=== PATIENT | female | born 1960 | race Caucasian/White ===

== ENCOUNTER → 2016-10-29 | Outpatient (CLI) | payer MEDICAID ==
[~2016-10-29] MED LIST: ALBU0.63 NEB; ALBU18HF IH; AMLO10TA2 PO; AMLO2.5T2 PO; BUTA-5 PO; BUTA1CAP57 PO; CALC-141 PO; CIPR500T3 PO; CLON1TAB PO; DULO60CA7 PO; ESOM40CA PO; FLUT1DIS3 INH; FURO-92 PO; FURO80TA77 PO; GABA100C8 PO; HYDR50TA13 PO; LACT1CAP35 PO; LAMO200T PO; LEVO25TA4 PO; LISI-167 PO; MAGN400T7 PO; METF500T4 PO; METO25TA35 PO; METO25TA4 PO; MULT-208 PO; NORT10CA PO; ONDA8TAB12 PO; OXYC1TAB7 PO; POTA10TA5 PO; PREG25CA PO; PROM25TA10 PO; SENN1TAB67 PO; SPIR25TA3 PO; SUCR1TAB PO; SUVO10TA PEG; TIOT18CA INH; TRAM50TA2 PO; ZIPR80CA2 PO; ZOLP-413 PO; [UNRECOGNIZED DRUG - OTHER] PO; latuda PO
== END | disposition home or self-care (01) ==
LOC: CFH 15:38
PROVIDERS: ATTEND Nurse Practitioner
DX: Z12.2 Encounter for screening for malignant neoplasm of respiratory organs (principal); J98.11 Atelectasis; J44.9 Chronic obstructive pulmonary disease, unspecified; J84.10 Pulmonary fibrosis, unspecified; R91.1 Solitary pulmonary nodule; F17.210 Nicotine dependence, cigarettes, uncomplicated
CPT/HCPCS: G0297

== ENCOUNTER → 2017-01-25 | Outpatient (CLI) | payer MEDICAID ==
[~2017-01-25] MED LIST changes: +GABA-826 PO; -GABA100C8 PO
== END | disposition home or self-care (01) ==
LOC: CFH 13:23
PROVIDERS: ATTEND Internal Medicine Critical Care Medicine
DX: J98.4 Other disorders of lung (principal); M47.894 Other spondylosis, thoracic region
CPT/HCPCS: 71250

== ENCOUNTER 2018-01-15 11:28 | Emergency (ER) | payer MEDICAID ==
[~2018-01-15] VITALS: Ht 172.7 cm; Wt 96.2 kg
[~2018-01-15 11:28] MED LIST changes: -LAMO200T PO; +LAMO200T2 PO
[2018-01-15 11:30] VITALS: BP 147/87
[2018-01-15] MEDS ORDERED: ALBUTEROL/IPRATROPIUM 2.5MG/0.5MG, 3 ML ONE (11:52)
[2018-01-15] MEDS ORDERED: ALBUTEROL/IPRATROPIUM 2.5MG/0.5MG, 3 ML NPPB ONE (12:00)
== END 2018-01-15 12:46 | disposition home or self-care (01) ==
LOC: ED 12:00
DX: J44.1 Chronic obstructive pulmonary disease with (acute) exacerbation (principal); B34.9 Viral infection, unspecified; K21.9 Gastro-esophageal reflux disease without esophagitis; E11.9 Type 2 diabetes mellitus without complications; M19.90 Unspecified osteoarthritis, unspecified site; Z90.49 Acquired absence of other specified parts of digestive tract; Z90.710 Acquired absence of both cervix and uterus; F17.210 Nicotine dependence, cigarettes, uncomplicated
CPT/HCPCS: 71046; 94640; 99284; J7620

== ENCOUNTER 2018-03-16 16:51 | Emergency (ER) | payer MEDICAID ==
[~2018-03-16] VITALS: Ht 172.7 cm; Wt 92.5 kg
[~2018-03-16 16:51] MED LIST changes: -METF500T4 PO; +METF500T5 PO; -SPIR25TA3 PO; +SPIR25TA5 PO
[2018-03-16 17:56] LABS: BASOPHILS # (AUTO) 0.01 x10^3/uL (0-0.1); BASOPHILS % (AUTO) 0 % (0-1); EOSINOPHILS # (AUTO) 0.25 x10^3/uL (0-0.4); EOSINOPHILS % (AUTO) 2 % (1-7); LYMPHOCYTES # (AUTO) 2.52 x10^3/uL (1-3.4); LYMPHOCYTES % (AUTO) 21 % (22-44); MD NO; MEAN CORPUSCULAR HEMOGLOBIN 30.8 pg (27.0-34.8); MEAN CORPUSCULAR VOLUME 93.3 fL (80-100); MEAN PLATELET VOLUME 10.5 fL (7.4-10.4); MONOCYTES # (AUTO) 0.41 x10^3/uL (0.2-0.8); MONOCYTES % (AUTO) 3 % (2-9); NEUTROPHILS # (AUTO) 9.13 x10^3/uL (1.8-6.8); NEUTROPHILS % (AUTO) 74 % (42-75); PLATELET COUNT 230 x10^3/uL (130-400); RED BLOOD COUNT 5.35 x10^6/uL (3.82-5.3); RED CELL DISTRIBUTION WIDTH 14.1 % (9.6-15.2)
[2018-03-16 18:06] LABS: ALANINE AMINOTRANSFERASE 23 U/L (12-78); ALBUMIN 3.8 g/dL (3.4-5.0); ANION GAP 8 mmol/L (5-15); CALCIUM 9.2 mg/dL (8.5-10.1); CHLORIDE 110 mmol/L (98-107)
[2018-03-16 18:08] LABS: ALKALINE PHOSPHATASE 137 U/L (45-117); BILIRUBIN,TOTAL 0.6 mg/dL (0.2-1.0); TOTAL PROTEIN 8.1 g/dL (6.4-8.2)
[2018-03-16] MEDS ORDERED: KETOROLAC 30 MG/1 ML ONE (18:28)
[2018-03-16] MEDS ORDERED: KETOROLAC 30 MG/1 ML IM ONE (18:30)
[2018-03-16 18:51] VITALS: BP 117/67
== END 2018-03-16 19:12 | disposition home or self-care (01) ==
LOC: ED 19:03
DX: E10.42 Type 1 diabetes mellitus with diabetic polyneuropathy (principal); I10 Essential (primary) hypertension; G89.29 Other chronic pain; K21.9 Gastro-esophageal reflux disease without esophagitis; M79.7 Fibromyalgia; M19.90 Unspecified osteoarthritis, unspecified site; M81.0 Age-related osteoporosis without current pathological fracture; J44.9 Chronic obstructive pulmonary disease, unspecified; Z90.49 Acquired absence of other specified parts of digestive tract; Z90.710 Acquired absence of both cervix and uterus; Z91.14 Patient's other noncompliance with medication regimen; Z72.89 Other problems related to lifestyle; Z59.0 Homelessness
CPT/HCPCS: 36415; 80053; 85025; 96372; 99284; J1885

== ENCOUNTER 2018-09-17 18:01 | Emergency (ER) | payer MEDICAID ==
[~2018-09-17] VITALS: Ht 172.7 cm; Wt 81.1 kg
[~2018-09-17 18:01] MED LIST changes: -AMLO10TA2 PO; +AMLO10TA8 PO; +METF500T17 PO; -METF500T5 PO
[2018-09-17 18:32] VITALS: BP 123/81
--- NOTE | 2018-09-17 19:52 | NUR ---
Pt ambulated to room without assistance, with 2 service dogs.
--- NOTE | 2018-09-17 19:55 | NUR ---
Pt advised that we will need a urine sample, in a cup, when she is finished changing into gown.
[2018-09-17] MEDS ORDERED: SODIUM CHLORIDE FLUSH 10ML SYR IVF ONE (20:00)
--- NOTE | 2018-09-17 20:08 | NUR ---
Pt has changed into gown, pt ambulating around room, refusing to sit in bed, squatting down at time and urinating on the floor. Pt's 2 "service dogs" are drinking urine from the floor. Pt refusing to speak to EDT who is at bedside for EKG and refusing to allow EKG to be done.
--- NOTE | 2018-09-17 20:10 | NUR ---
Pt reports that she is unable to provide urine sample now as she has already urinated all over the floor.
--- NOTE | 2018-09-17 20:30 | NUR ---
Lab at bedside for blood draw. Pt with dogs on her lap, holding dogs by collar, as labor relations director attempts to place tourniquet, dogs lunged at labor relations director and bit at her. Pt stated "they won't bite" and hit the dog in the head and held collar more tightly. control valve technician able to obtain sample.
[2018-09-17 20:47] LABS: BASOPHILS # (AUTO) 0.05 x10^3/uL (0-0.1); BASOPHILS % (AUTO) 0 % (0-1); EOSINOPHILS # (AUTO) 0.19 x10^3/uL (0-0.4); EOSINOPHILS % (AUTO) 2 % (1-7); LYMPHOCYTES # (AUTO) 3.18 x10^3/uL (1-3.4); LYMPHOCYTES % (AUTO) 27 % (22-44); MD NO; MEAN CORPUSCULAR HEMOGLOBIN 30.6 pg (27.0-34.8); MEAN CORPUSCULAR HGB CONC 33.3 g/dL (32.4-35.8); MEAN CORPUSCULAR VOLUME 91.9 fL (80-100); MEAN PLATELET VOLUME 9.5 fL (7.4-10.4); MONOCYTES # (AUTO) 0.67 x10^3/uL (0.2-0.8); MONOCYTES % (AUTO) 6 % (2-9); NEUTROPHILS # (AUTO) 7.58 x10^3/uL (1.8-6.8); NEUTROPHILS % (AUTO) 65 % (42-75); PLATELET COUNT 266 x10^3/uL (130-400); RED BLOOD COUNT 5.26 x10^6/uL (3.82-5.3); RED CELL DISTRIBUTION WIDTH 14.1 % (9.6-15.2)
--- NOTE | 2018-09-17 20:53 | NUR ---
Dr. Junior at bedside to evaluate pt.
[2018-09-17 20:57] LABS: ALBUMIN 3.9 g/dL (3.4-5.0); ANION GAP 7 mmol/L (5-15); CALCIUM 9.1 mg/dL (8.5-10.1); CHLORIDE 108 mmol/L (98-107)
[2018-09-17 21:02] LABS: ALANINE AMINOTRANSFERASE 25 U/L (12-78); ALKALINE PHOSPHATASE 150 U/L (45-117); BILIRUBIN,TOTAL 0.7 mg/dL (0.2-1.0); CREATININE 1.09 mg/dL (0.55-1.02); TOTAL PROTEIN 8.2 g/dL (6.4-8.2)
== END 2018-09-17 21:55 | disposition left against medical advice (07) ==
LOC: ED 21:49
DX: R42 Dizziness and giddiness (principal); I10 Essential (primary) hypertension; K21.9 Gastro-esophageal reflux disease without esophagitis; M19.90 Unspecified osteoarthritis, unspecified site; F17.200 Nicotine dependence, unspecified, uncomplicated; J44.9 Chronic obstructive pulmonary disease, unspecified; Z72.9 Problem related to lifestyle, unspecified; Z75.9 Unspecified problem related to medical facilities and other health care; Z91.14 Patient's other noncompliance with medication regimen; Z63.8 Other specified problems related to primary support group
CPT/HCPCS: 36415; 80053; 82962; 85025; 99283

== ENCOUNTER 2018-10-04 16:07 | Inpatient (IN) | payer MEDICAID ==
[~2018-10-04] VITALS: Ht 172.7 cm; Wt 83.0 kg
--- NOTE | 2018-10-04 16:29 | NUR ---
NO CODE NEURO AT THIS TIME PT IS NOT IN 3 HOUR WINDOW. PTS SYMPTOMS STARTED THIS MORNING.
[2018-10-04] MEDS ORDERED: ALBUTEROL/IPRATROPIUM 2.5MG/0.5MG, 3 ML NPPB ONE (17:00)
[2018-10-04] MEDS ORDERED: SODIUM CHLORIDE FLUSH 10ML SYR IVF ONE (17:00)
[2018-10-04 17:17] LABS: BASOPHILS # (AUTO) 0.04 x10^3/uL (0-0.1); BASOPHILS % (AUTO) 0 % (0-1); EOSINOPHILS # (AUTO) 0.18 x10^3/uL (0-0.4); EOSINOPHILS % (AUTO) 1 % (1-7); LYMPHOCYTES # (AUTO) 1.98 x10^3/uL (1-3.4); LYMPHOCYTES % (AUTO) 15 % (22-44); MD NO; MEAN CORPUSCULAR HEMOGLOBIN 30.8 pg (27.0-34.8); MEAN CORPUSCULAR VOLUME 90.5 fL (80-100); MEAN PLATELET VOLUME 8.6 fL (7.4-10.4); MONOCYTES % (AUTO) 4 % (2-9); NEUTROPHILS % (AUTO) 80 % (42-75); PLATELET COUNT 426 x10^3/uL (130-400); RED BLOOD COUNT 4.14 x10^6/uL (3.82-5.3); RED CELL DISTRIBUTION WIDTH 14.2 % (9.6-15.2)
[2018-10-04 17:29] LABS: ALANINE AMINOTRANSFERASE 21 U/L (12-78); ALBUMIN 2.8 g/dL (3.4-5.0); ANION GAP 5 mmol/L (5-15); CALCIUM 8.4 mg/dL (8.5-10.1); CHLORIDE 108 mmol/L (98-107); CREATININE 0.79 mg/dL (0.55-1.02)
[2018-10-04 17:31] LABS: ALKALINE PHOSPHATASE 174 U/L (45-117); BILIRUBIN,TOTAL 0.3 mg/dL (0.2-1.0); TOTAL PROTEIN 7.4 g/dL (6.4-8.2)
[2018-10-04] MEDS ORDERED: ALBUTEROL/IPRATROPIUM 2.5MG/0.5MG, 3 ML ONE (18:35)
--- NOTE | 2018-10-04 19:06 | NUR ---
PT HERE FOR NEURO SYMPTOMS, SON BROUGHT IN TODAY. PT SON REMAINS AT BEDSIDE. PT VERY ANXIOUS.
[2018-10-04] MEDS ORDERED: LEVOFLOXACIN/PMX 750MG/150ML 150 ML ONE (19:21)
[2018-10-04] MEDS ORDERED: CEFTRIAXONE 1,000 MG in SODIUM CHLORIDE 0.9% 50 ML IVPB ONE (19:30)
[2018-10-04] MEDS ORDERED: methylPREDNISolone SOD SUCC 125 MG/2 ML IVPush ONE (19:30)
[2018-10-04] MEDS ORDERED: LEVOFLOXACIN/PMX 750MG/150ML 150 ML IV ONE (19:30)
[2018-10-04] MEDS ORDERED: AZITHROMYCIN 500 MG in SODIUM CHLORIDE 0.9% 250 ML IV ONE (19:30)
[2018-10-04] MEDS ORDERED: methylPREDNISolone SOD SUCC 125 MG/2 ML ONE (19:39)
--- NOTE | 2018-10-04 20:07 | NUR ---
Grisel thompson in EDM - 10/04/18 at 2009 by MIGUEL ANGEL PT WAS AMBULATED AROUND THE KATE WITH 1 PERSON ASSIST. PT WAS ABLE TO COMPLETE ABOUT 60 METERS OF WALKING WITHOUT DISTRESS. HOWEVER PT DID NOT REPORT INCREASE IN VERTIGO OR FEEL NAUSEA. PT HOWEVERE IS STILL CONCERNED ABOUT GOING HOME.
--- NOTE | 2018-10-04 20:09 | NUR ---
PT MEDICATED PER EMAR.
--- NOTE | 2018-10-04 21:29 | NUR ---
REPORT TO CHARISMA
[2018-10-04] MEDS ORDERED: SODIUM CHLORIDE 0.9% 1,000 ML IV SCH (21:58)
[2018-10-04] MEDS ORDERED: ONDANSETRON 2MG/ML, 2ML IVPush PRN (22:00)
[2018-10-04] MEDS ORDERED: POLYETHYLENE GLYCOL 17 GM PACKET PO PRN (22:00)
[2018-10-04] MEDS ORDERED: hydrALAzine 20 MG/ML, 1ML IVPush PRN (22:00)
[2018-10-04] MEDS ORDERED: TEMAZEPAM 15 MG CAPSULE PO PRN (22:00)
[2018-10-05] MEDS ORDERED: NICOTINE 7 MG/24 HR PATCH.TD24 TD SCH
[2018-10-05 00:27] VITALS: BP 116/70
[2018-10-05] MEDS: ENOXAPARIN 40 MG/0.4 ML SQ SCH ×2 (00:34→22:42)
[2018-10-05 00:39] VITALS: BP 116/68
[2018-10-05 01:04] LABS: MICROSCOPIC NOT IND
[2018-10-05 01:08] LABS: CULTURE INDICATED? NO
[2018-10-05 01:15] LABS: AMPHETAMINE SCREEN, URINE Negative (Negative); BARBITURATE SCREEN, URINE Negative (Negative); BENZODIAZEPINE SCREEN, URINE Negative (Negative); CANNABINOID SCREEN, URINE Negative (Negative); COCAINE SCREEN, URINE Negative (Negative); METHADONE SCREEN, URINE Negative (Negative); OPIATE SCREEN, URINE Positive (Negative)
[2018-10-05] MEDS ORDERED: ALBUTEROL/IPRATROPIUM 2.5MG/0.5MG, 3 ML ONE (02:51)
[2018-10-05] MEDS: ALBUTEROL/IPRATROPIUM 2.5MG/0.5MG, 3 ML NPPB SCH ×4 (02:54→18:42)
[2018-10-05 05:54] LABS: ANION GAP 7 mmol/L (5-15); CALCIUM 8.3 mg/dL (8.5-10.1); CHLORIDE 110 mmol/L (98-107); CREATININE 0.92 mg/dL (0.55-1.02)
[2018-10-05 05:55] LABS: BASOPHILS # (AUTO) 0.02 x10^3/uL (0-0.1); BASOPHILS % (AUTO) 0 % (0-1); EOSINOPHILS % (AUTO) 0 % (1-7); LYMPHOCYTES # (AUTO) 0.45 x10^3/uL (1-3.4); LYMPHOCYTES % (AUTO) 5 % (22-44); MD NO; MEAN CORPUSCULAR HEMOGLOBIN 30.8 pg (27.0-34.8); MEAN CORPUSCULAR HGB CONC 33.8 g/dL (32.4-35.8); MEAN PLATELET VOLUME 8.7 fL (7.4-10.4); MONOCYTES # (AUTO) 0.08 x10^3/uL (0.2-0.8); MONOCYTES % (AUTO) 1 % (2-9); NEUTROPHILS # (AUTO) 8.35 x10^3/uL (1.8-6.8); NEUTROPHILS % (AUTO) 94 % (42-75); PLATELET COUNT 347 x10^3/uL (130-400); RED BLOOD COUNT 3.84 x10^6/uL (3.82-5.3); RED CELL DISTRIBUTION WIDTH 14.1 % (9.6-15.2)
[2018-10-05 06:04] LABS: THYROID STIMULATING HORMONE 0.533 mIU/L (0.358-3.740)
[2018-10-05 07:57] VITALS: BP 110/58
[2018-10-05 09:24] LABS: HEMOGLOBIN A1C 5.4 % (4.2-6.3)
[2018-10-05] MEDS ORDERED: ALBUTEROL SULFATE 2.5 MG/3 ML NEB PRN (14:00)
[2018-10-05 14:09] VITALS: BP 105/71
[2018-10-05] MEDS ORDERED: BUTALB/APAP/CAFFEINE 50MG/325MG/40MG PO PRN (14:30)
[2018-10-05] MEDS: DULOXETINE 30 MG CAPSULE.DR PO SCH (15:19)
[2018-10-05] MEDS: SUMATRIPTAN 50 MG TABLET PO PRN ×2 (15:32→17:50)
[2018-10-05] MEDS ORDERED: LEVOFLOXACIN/PMX 750MG/150ML 150 ML IV SCH (16:00)
[2018-10-05] MEDS: LAMOTRIGINE 100 MG TABLET PO SCH (17:22)
[2018-10-05] MEDS: PREGABALIN 25 MG CAPSULE PO SCH ×2 (17:49→22:42)
[2018-10-05] MEDS ORDERED: NICOTINE 21 MG/24 HR PATCH.TD24 TD SCH (18:00)
[2018-10-05 19:42] VITALS: BP 120/72
[2018-10-05] MEDS ORDERED: TEMPLATE NON-FORMULARY MED. (Suvorexant (Belsomra) 20 MG) PEG SCH (21:00)
[2018-10-05] MEDS ORDERED: LORazepam 0.5MG TABLET PO ONE (21:00)
[2018-10-06 02:08] VITALS: BP 112/67
[2018-10-06 05:50] LABS: ANION GAP 5 mmol/L (5-15); CALCIUM 8.3 mg/dL (8.5-10.1); CHLORIDE 113 mmol/L (98-107)
[2018-10-06 05:51] LABS: CREATININE 0.63 mg/dL (0.55-1.02)
[2018-10-06] MEDS: ALBUTEROL/IPRATROPIUM 2.5MG/0.5MG, 3 ML NPPB SCH (07:00)
[2018-10-06 08:15] VITALS: BP 112/67
[2018-10-06] MEDS: DULOXETINE 30 MG CAPSULE.DR PO SCH (08:17)
[2018-10-06] MEDS: PREGABALIN 25 MG CAPSULE PO SCH (08:18)
[2018-10-06] MEDS: LAMOTRIGINE 100 MG TABLET PO SCH (08:18)
[2018-10-06] MEDS ORDERED: TIOTROPIUM BROMIDE 1.25 MCG INH SCH (09:00)
[2018-10-06] MEDS ORDERED: LEVOTHYROXINE 25 MCG TABLET PO SCH (09:00)
[2018-10-06] MEDS ORDERED: DULOXETINE 30 MG CAPSULE.DR PO SCH (09:00)
[2018-10-06] MEDS ORDERED: LAMOTRIGINE 100 MG TABLET PO SCH (09:00)
[2018-10-06] MEDS ORDERED: SUVO10TA PEG (11:21)
[2018-10-06] MEDS ORDERED: TIOT18CA INH (11:21)
[2018-10-06] MEDS ORDERED: ALBU0.63 NEB (11:21)
[2018-10-06] MEDS ORDERED: LAMO100T5 PO (11:21)
[2018-10-06] MEDS ORDERED: DULO60CA7 PO (11:21)
[2018-10-06] MEDS ORDERED: LEVO25TA4 PO (11:21)
[2018-10-06] MEDS ORDERED: LEVO500T8 PO ×2 (11:23)
[2018-10-06 13:07] VITALS: BP 135/77
[2018-10-06] MEDS ORDERED: ALBUTEROL/IPRATROPIUM 2.5MG/0.5MG, 3 ML NPPB SCH (16:00)
[2018-10-06] MEDS ORDERED: LEVO750T6 PO (16:20)
== END 2018-10-06 13:53 | disposition home or self-care (01) | DRG 193 ==
LOC: ED 19:30 → EDIP 20:28 → 4NOR 23:03 → DCLOUNGE 10-06 13:37
PROVIDERS: ADMIT Hospitalist; ATTEND Hospitalist
DX: J15.9 Unspecified bacterial pneumonia (principal); G92 Toxic encephalopathy; J96.01 Acute respiratory failure with hypoxia; J44.0 Chronic obstructive pulmonary disease with (acute) lower respiratory infection; J44.1 Chronic obstructive pulmonary disease with (acute) exacerbation; T88.6XXA Anaphylactic reaction due to adverse effect of correct drug or medicament properly administered, initial encounter; J98.11 Atelectasis; E11.9 Type 2 diabetes mellitus without complications; F17.210 Nicotine dependence, cigarettes, uncomplicated; F31.9 Bipolar disorder, unspecified; F43.10 Post-traumatic stress disorder, unspecified; G47.33 Obstructive sleep apnea (adult) (pediatric); I10 Essential (primary) hypertension; K21.9 Gastro-esophageal reflux disease without esophagitis; K74.60 Unspecified cirrhosis of liver; M79.7 Fibromyalgia; M81.0 Age-related osteoporosis without current pathological fracture; T36.0X5A Adverse effect of penicillins, initial encounter; Z85.41 Personal history of malignant neoplasm of cervix uteri; Z85.43 Personal history of malignant neoplasm of ovary; Z86.19 Personal history of other infectious and parasitic diseases; Z90.710 Acquired absence of both cervix and uterus; Z91.19 Patient's noncompliance with other medical treatment and regimen; Z88.0 Allergy status to penicillin; Z88.5 Allergy status to narcotic agent; Z88.6 Allergy status to analgesic agent; Z88.8 Allergy status to other drugs, medicaments and biological substances
CPT/HCPCS: 36415; 84145; 99285; J7620; 70450; 71046; 80048; 80053; 80307; 81003; 82962; 83036; 83735; 84100; 84443; 85025; 87040; 93005; 94640; 96365; 96375; G0378; J1650; J1956; J2405; 92523-GN; J2930; J7030

== ENCOUNTER 2019-03-09 10:58 | Emergency (ER) | payer MEDICARE, MEDICAID ==
[~2019-03-09] VITALS: Ht 172.7 cm; Wt 91.0 kg
[2019-03-09 12:30] VITALS: BP 123/74
== END 2019-03-09 14:34 | disposition home or self-care (01) ==
LOC: ED 14:27
DX: S39.012A Strain of muscle, fascia and tendon of lower back, initial encounter (principal); S33.5XXA Sprain of ligaments of lumbar spine, initial encounter; K62.89 Other specified diseases of anus and rectum; K59.00 Constipation, unspecified; K21.9 Gastro-esophageal reflux disease without esophagitis; I10 Essential (primary) hypertension; E11.9 Type 2 diabetes mellitus without complications; J44.9 Chronic obstructive pulmonary disease, unspecified; M19.90 Unspecified osteoarthritis, unspecified site; N19 Unspecified kidney failure; Z72.9 Problem related to lifestyle, unspecified; Z90.49 Acquired absence of other specified parts of digestive tract; Z90.710 Acquired absence of both cervix and uterus; X58.XXXA Exposure to other specified factors, initial encounter; Y93.89 Activity, other specified; Y92.89 Other specified places as the place of occurrence of the external cause; Y99.8 Other external cause status
CPT/HCPCS: 36415; 74021; 80053; 81001; 85025; 99284

== ENCOUNTER 2019-03-21 15:39 | Emergency (ER) | payer MEDICARE, MEDICAID ==
[~2019-03-21] VITALS: Ht 157.5 cm; Wt 100.5 kg
[2019-03-21 15:43] VITALS: BP 128/79
== END 2019-03-21 17:43 | disposition home or self-care (01) ==
LOC: ED 17:41
DX: M25.571 Pain in right ankle and joints of right foot (principal); M79.671 Pain in right foot; E11.9 Type 2 diabetes mellitus without complications; K21.9 Gastro-esophageal reflux disease without esophagitis; I10 Essential (primary) hypertension; J44.9 Chronic obstructive pulmonary disease, unspecified; Z90.49 Acquired absence of other specified parts of digestive tract; Z90.710 Acquired absence of both cervix and uterus
CPT/HCPCS: 93005; 99283

== ENCOUNTER → 2019-09-11 | Outpatient (CLI) | payer MEDICAID, MEDICARE ==
[~2019-09-11] MED LIST changes: -HYDR50TA13 PO; +HYDR50TA99 PO; +LAMO100T5 PO; -LAMO200T2 PO; +LAMO200T6 PO; +LEVO500T8 PO; +LEVO750T6 PO; +LEVO75TA PO; -MAGN400T7 PO; +MAGN400T9 PO
== END | disposition home or self-care (01) ==
LOC: CFH 15:00
PROVIDERS: ATTEND Registered Nurse
DX: I34.8 Other nonrheumatic mitral valve disorders (principal); J44.9 Chronic obstructive pulmonary disease, unspecified; I25.2 Old myocardial infarction; J96.11 Chronic respiratory failure with hypoxia; I50.9 Heart failure, unspecified; G47.33 Obstructive sleep apnea (adult) (pediatric); Z68.33 Body mass index [BMI] 33.0-33.9, adult
CPT/HCPCS: 93306

== ENCOUNTER 2019-12-15 21:38 | Emergency (ER) | payer MEDICARE ==
[~2019-12-15] VITALS: Ht 172.7 cm; Wt 108.0 kg
--- NOTE | 2019-12-15 21:45 | NUR ---
Pt transferred from [facility] s/t GI bleeding with hemoglobin 10 and K+ 2. Pt c/o increased rectal pain with hx of hemorrhoids. 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 Pt denies noting bloody stool at home. States she has had increased weakness over the last couple days.
[2019-12-15] MEDS ORDERED: POTASSIUM CHLORIDE 40 MEQ in SODIUM CHLORIDE 0.9% 500 ML IV ONE (22:00)
[2019-12-15] MEDS ORDERED: FURO40TA6 PO (22:01)
[2019-12-15] MEDS ORDERED: CLON0.5T PO (22:01)
[2019-12-15] MEDS ORDERED: LISI-170 PO (22:01)
[2019-12-15] MEDS ORDERED: ATORVASTATIN PO (22:01)
[2019-12-15] MEDS ORDERED: ONDA8TAB9 PO (22:01)
[2019-12-15] MEDS ORDERED: ASPI-496 PO (22:01)
[2019-12-15] MEDS ORDERED: SERT100T32 PO (22:01)
[2019-12-15] MEDS ORDERED: TIOT18CA INH (22:01)
[2019-12-15] MEDS ORDERED: HYDROmorphone 1 MG/ML, 1ML INJ ONE (22:08)
--- NOTE | 2019-12-15 22:15 | NUR ---
Pt medicated per MAR for rectal pain. IV fluids infusing via pump. Pillow and socks given for comfort. Call light in reach. No further needs expressed.
[2019-12-15 22:26] LABS: BASOPHILS # (AUTO) 0.02 x10^3/uL (0-0.1); BASOPHILS % (AUTO) 0 % (0-1); EOSINOPHILS % (AUTO) 1 % (1-7); LYMPHOCYTES # (AUTO) 2.01 x10^3/uL (1-3.4); LYMPHOCYTES % (AUTO) 20 % (22-44); MD NO; MEAN CORPUSCULAR HEMOGLOBIN 30.1 pg (27.0-34.8); MEAN CORPUSCULAR HGB CONC 33.1 g/dL (32.4-35.8); MEAN CORPUSCULAR VOLUME 90.8 fL (80-100); MEAN PLATELET VOLUME 10.4 fL (7.4-10.4); MONOCYTES # (AUTO) 0.45 x10^3/uL (0.2-0.8); MONOCYTES % (AUTO) 5 % (2-9); NEUTROPHILS # (AUTO) 7.54 x10^3/uL (1.8-6.8); NEUTROPHILS % (AUTO) 75 % (42-75); PLATELET COUNT 152 x10^3/uL (130-400); RED BLOOD COUNT 4.85 x10^6/uL (3.82-5.3)
[2019-12-15] MEDS ORDERED: HYDROmorphone 2 MG/ML, 1ML IVPush PRN (22:30)
[2019-12-15 22:32] LABS: ALANINE AMINOTRANSFERASE 26 U/L (12-78); ALBUMIN 2.9 g/dL (3.4-5.0); ANION GAP 6 mmol/L (5-15); CALCIUM 8.1 mg/dL (8.5-10.1); CHLORIDE 107 mmol/L (98-107); CREATININE 1.71 mg/dL (0.55-1.02)
[2019-12-15 22:37] LABS: ALKALINE PHOSPHATASE 131 U/L (45-117); BILIRUBIN,TOTAL 0.2 mg/dL (0.2-1.0); TOTAL PROTEIN 6.9 g/dL (6.4-8.2); TROPONIN I < 0.015 ng/mL (0.000-0.045)
--- NOTE | 2019-12-15 22:45 | NUR ---
With pt permission, Priyanka, pt's daughter given update over phone. She can be reached at [phone].
--- NOTE | 2019-12-15 22:58 | NUR ---
ERP at bedside to recheck.
--- NOTE | 2019-12-15 23:01 | NUR ---
K infusion discontinued per ERP s/t pt's current labs.
[2019-12-15 23:52] VITALS: BP 113/67
== END 2019-12-15 23:56 | disposition home or self-care (01) ==
LOC: ED 22:04
DX: K64.4 Residual hemorrhoidal skin tags (principal); R94.31 Abnormal electrocardiogram [ECG] [EKG]; I10 Essential (primary) hypertension; E11.9 Type 2 diabetes mellitus without complications; K21.9 Gastro-esophageal reflux disease without esophagitis; M19.90 Unspecified osteoarthritis, unspecified site; J44.9 Chronic obstructive pulmonary disease, unspecified; F17.200 Nicotine dependence, unspecified, uncomplicated; Z90.49 Acquired absence of other specified parts of digestive tract; Z90.710 Acquired absence of both cervix and uterus
CPT/HCPCS: 36415; 80053; 83735; 84443; 84484; 85025; 86850; 86900; 93005; 96365; 96375; 99284; J1170; J3480; J7040

== ENCOUNTER 2020-06-11 14:52 | Emergency (ER) | payer MEDICARE ==
[~2020-06-11] VITALS: Ht 172.7 cm; Wt 118.2 kg
[~2020-06-11 14:52] MED LIST changes: +AMLO-211 PO; -AMLO10TA8 PO; +ASPI-496 PO; +ATORVASTATIN PO; +CLON0.5T PO; +FURO40TA6 PO; +LISI-170 PO; +ONDA8TAB9 PO; +SERT100T32 PO
--- NOTE | 2020-06-11 15:33 | NUR ---
danielito jaffe [phone]
[2020-06-11] MEDS ORDERED: SODIUM CHLORIDE FLUSH 10ML SYR IVF ONE (16:00)
[2020-06-11 16:05] LABS: ALANINE AMINOTRANSFERASE 27 U/L (12-78); ANION GAP 3 mmol/L (5-15); CALCIUM 8.1 mg/dL (8.5-10.1); CHLORIDE 108 mmol/L (98-107); CREATININE 0.87 mg/dL (0.55-1.02)
[2020-06-11 16:06] LABS: BASOPHILS % (AUTO) 1 % (0-1); EOSINOPHILS % (AUTO) 4 % (1-7); LYMPHOCYTES % (AUTO) 18 % (22-44); MEAN CORPUSCULAR HEMOGLOBIN 28.9 pg (27.0-34.8); MONOCYTES % (AUTO) 7 % (2-9); NEUTROPHILS % (AUTO) 71 % (42-75); PLATELET COUNT 216 x10^3/uL (130-400); RED BLOOD COUNT 4.81 x10^6/uL (3.82-5.3); RED CELL DISTRIBUTION WIDTH 15.1 % (9.6-15.2)
[2020-06-11 16:07] LABS: ALKALINE PHOSPHATASE 165 U/L (45-117); BILIRUBIN,TOTAL 0.3 mg/dL (0.2-1.0); TOTAL PROTEIN 7.3 g/dL (6.4-8.2)
[2020-06-11 16:11] LABS: MD NO
[2020-06-11 16:36] VITALS: BP 123/80
[2020-06-11 17:38] LABS: AMPHETAMINE SCREEN, URINE Positive (Negative); BARBITURATE SCREEN, URINE Negative (Negative); BENZODIAZEPINE SCREEN, URINE Negative (Negative); CANNABINOID SCREEN, URINE Negative (Negative)
[2020-06-11 17:39] LABS: COCAINE SCREEN, URINE Negative (Negative); METHADONE SCREEN, URINE Negative (Negative); OPIATE SCREEN, URINE Negative (Negative)
[2020-06-11 17:48] LABS: MICROSCOPIC NOT IND
--- NOTE | 2020-06-11 18:44 | NUR ---
Patient given discharge instructions and they have confirmed that they understand the instructions. Patient ambulatory with steady gait.
== END 2020-06-11 18:45 | disposition home or self-care (01) ==
LOC: ED 17:16
DX: R56.9 Unspecified convulsions (principal); R94.31 Abnormal electrocardiogram [ECG] [EKG]; I10 Essential (primary) hypertension; E11.9 Type 2 diabetes mellitus without complications; K21.9 Gastro-esophageal reflux disease without esophagitis; J44.9 Chronic obstructive pulmonary disease, unspecified; Z90.49 Acquired absence of other specified parts of digestive tract; Z90.710 Acquired absence of both cervix and uterus; F17.200 Nicotine dependence, unspecified, uncomplicated
CPT/HCPCS: 36415; 70450; 80053; 80307; 81003; 83735; 85025; 93005; 99285

== ENCOUNTER 2020-06-11 22:55 | Emergency (ER) | payer MEDICARE ==
[~2020-06-11] VITALS: Ht 172.7 cm; Wt 120.0 kg
[2020-06-11] MEDS ORDERED: LORazepam 2 MG/ML, 1ML IVPush ONE (23:30)
[2020-06-11] MEDS ORDERED: SODIUM CHLORIDE 0.9% 1,000ML IVBOLUS ONE (23:30)
[2020-06-11] MEDS ORDERED: SODIUM CHLORIDE FLUSH 10ML SYR IVF ONE (23:30)
[2020-06-11] MEDS ORDERED: LEVETIRACETAM 1,000 MG in SODIUM CHLORIDE 0.9% 100 ML IV ONE (23:30)
[2020-06-11] MEDS ORDERED: LORazepam 2 MG/ML, 1ML ONE ×2 (23:34→23:41)
[2020-06-11 23:54] LABS: BASOPHILS % (AUTO) 1 % (0-1); EOSINOPHILS % (AUTO) 4 % (1-7); LYMPHOCYTES % (AUTO) 20 % (22-44); MEAN CORPUSCULAR HEMOGLOBIN 28.7 pg (27.0-34.8); MEAN CORPUSCULAR HGB CONC 32.7 g/dL (32.4-35.8); MEAN PLATELET VOLUME 9.5 fL (7.4-10.4); MONOCYTES % (AUTO) 7 % (2-9); NEUTROPHILS % (AUTO) 69 % (42-75); PLATELET COUNT 207 x10^3/uL (130-400); RED CELL DISTRIBUTION WIDTH 15.1 % (9.6-15.2)
[2020-06-11 23:59] LABS: MD NO
[2020-06-12 00:06] LABS: ANION GAP 4 mmol/L (5-15); CALCIUM 8.1 mg/dL (8.5-10.1); CHLORIDE 107 mmol/L (98-107); CREATININE 0.76 mg/dL (0.55-1.02)
--- NOTE | 2020-06-12 00:06 | NUR ---
MED SENT FOR FROM RX.
[2020-06-12 00:14] VITALS: BP 146/78
--- NOTE | 2020-06-12 00:23 | NUR ---
LATE ENTRY SUMMARY NOTE: PT PRESENTS TO THE ER A&OX4. PT STATES SHE'S ONLY HERE BECAUSE HER CHILDREN MADE HER COME AFTER A REPORTED 3 MINUTE SZ. PT WAS D/C'D EARLIER TODAY FOR SAME COMPLAINT. PT DENIES ANY SZ HX. PT'S SOLE COMPLAINT IS BEING VERY TIRED. SHE WAS IMMEDIATELY PLACED ON CARDIAC, BP AND O2 MONITORS. SHE WEARS O2 AT BASELINE AND IS USING BASELINE O2 VIA NC. PT IS NOW SLEEPING WITH SON AT BEDSIDE.
[2020-06-12] MEDS ORDERED: POTASSIUM CHLORIDE 20 MEQ TAB.ER.PRT PO ONE (00:30)
== END 2020-06-12 00:50 | disposition home or self-care (01) ==
LOC: ED 23:56
DX: R56.9 Unspecified convulsions (principal); E87.6 Hypokalemia; R51.9 Headache, unspecified; R00.0 Tachycardia, unspecified; R94.31 Abnormal electrocardiogram [ECG] [EKG]; E11.9 Type 2 diabetes mellitus without complications; J44.9 Chronic obstructive pulmonary disease, unspecified; I10 Essential (primary) hypertension
CPT/HCPCS: 36415; 80048; 80307; 82040; 85025; 93005; 96365; 96375; 99284; J1953; J2060; J7030

== ENCOUNTER 2021-01-30 13:53 | Day surgery (SDC) | payer MEDICARE, OTHER ==
[~2021-01-30] VITALS: Ht 172.7 cm; Wt 113.3 kg
[~2021-01-30 13:53] MED LIST changes: +BUPIVACAINE 0.25% ONE; +CHLORHEXIDINE 15 ML UDC ONE; -CIPR500T3 PO; +CIPR500T4 PO; +LIDOCAINE-MPF 1%, 5ML ONE
[2021-01-30] MEDS ORDERED: FENTANYL PF 100 MCG/2ML ONE ×2 (13:54→16:08)
[2021-01-30] MEDS ORDERED: MIDAZOLAM 1 MG/ML, 2ML ONE (13:54)
[2021-01-30] MEDS ORDERED: BUPIVACAINE/PF 0.5% ONE (13:56)
[2021-01-30 14:23] VITALS: BP 143/74
[2021-01-30] MEDS ORDERED: CHLORHEXIDINE 15 ML UDC PO ONE ×2 (14:30)
[2021-01-30] MEDS ORDERED: LACTATED RINGERS 1,000 ML IV SCH (14:30)
[2021-01-30] MEDS ORDERED: MULT1TAB9 PO (14:42)
[2021-01-30] MEDS ORDERED: HYDR4TAB48 PO (14:42)
[2021-01-30] MEDS ORDERED: OMEP40CA8 PO (14:42)
[2021-01-30] MEDS ORDERED: CELE200C PO (14:42)
[2021-01-30] MEDS ORDERED: VALS1TAB22 PO (14:42)
[2021-01-30] MEDS ORDERED: MELA3TAB62 PO (14:43)
[2021-01-30] MEDS ORDERED: POTA10TA PO (14:44)
[2021-01-30] MEDS ORDERED: OXYcodone 5 MG/5 ML ORAL.SOL UDC ONE (15:53)
[2021-01-30] MEDS ORDERED: ACETAMINOPHEN 650 MG/20.3 ML UDC ONE (15:54)
[2021-01-30] MEDS ORDERED: OXYcodone 5 MG/5 ML ORAL.SOL UDC PO PRN ×2 (16:00→16:30)
[2021-01-30] MEDS ORDERED: FENTANYL PF 100 MCG/2ML IV PRN (16:30)
== END 2021-01-30 17:43 | disposition home or self-care (01) ==
LOC: OR 13:53
PROVIDERS: ATTEND Orthopaedic Surgery
DX: M67.431 Ganglion, right wrist (principal); G56.01 Carpal tunnel syndrome, right upper limb; G47.33 Obstructive sleep apnea (adult) (pediatric); E66.9 Obesity, unspecified; E11.9 Type 2 diabetes mellitus without complications; Z20.822 Contact with and (suspected) exposure to COVID-19; Z79.899 Other long term (current) drug therapy; Z88.0 Allergy status to penicillin; Z88.5 Allergy status to narcotic agent; Z99.81 Dependence on supplemental oxygen
CPT/HCPCS: 25111; 64721; 82962; 87635; 88304; 93005; J2250; J3010; J7120